=== PATIENT | male | born 1970 | race Caucasian/White ===

== ENCOUNTER 2016-05-20 06:19 | Emergency (ER) | payer BC, OTHER ==
[~2016-05-20] VITALS: Ht 185.4 cm; Wt 143.8 kg
[~2016-05-20 06:19] MED LIST: NO KNOWN MEDICATIONS
[2016-05-20 06:21] VITALS: Ht 185.4 cm; Wt 143.8 kg
--- NOTE | 2016-05-20 06:39 | NUR ---
PROVIDER DR. ARRIAGA IN ROOM WITH PT.
--- NOTE | 2016-05-20 07:03 | ERPDOC ---
Departure Disposition Decision Date: May 20, 2016 Disposition Decision Time: 07:41 Disposition: 01 DISCHARGED HOME, SELF-CARE Impression Impression Impression: Primary Impression: Acute sinusitis Sinusitis location: unspecified location Recurrence: not specified as recurrent Qualified Codes: J01.90 - Acute sinusitis, unspecified Severity: Moderate Condition: Improved Seen By: Physician only Referrals: BC CHAVEZ II, MD (Family) 2 Days Patient Instructions: Sinusitis (ED) Problems/Meds/Labs Reviewed?: Yes Medications reviewed and manag: Yes Follow up care ordered?: Yes Mental Status: Alert, Oriented Scripts Amoxicillin/Potassium Clav (Augmentin 875-125 Tablet) 1 Each Tablet 1 TAB PO BID for 10 Days, #20 TAB 0 Refills TAKE WITH MEALS Prov: LENI ARRIAGA DO 05/20/16 Hydrocodone/Acetaminophen (Deposit 5-325 Tablet) 5-325 Tablet 1 TAB PO Q4HR Y for pain for 2 Days, #12 TAB 0 Refills Prov: LENI ARRIAGA DO 05/20/16 HPI - General Medical General Chief Complaint: Headache Stated Complaint: HEADACHE AND L EYE PAIN Time Seen by Provider: 06:22 Source: patient Exam Limitations: no limitations HPI - General Medical Initial Comments 46-year-old male presents to the emergency department with a chief complaint of a typical headache and sinus pressure and congestion. Patient noted onset of symptoms 3 days ago. Patient is expressing nasal congestion in the left manner with thick drainage. Patient is experiencing frontal and maxillary sinus pressure as well. Patient states his headache is a gradual progression in nature. It is moderate is dull. Patient denies any other complaints or associated symptoms. Patient was at home when the symptoms began. Symptoms have persisted in nature since onset. He has tried Sudafed and over-the- counter medications with some relief of symptoms. Occurred At: home Onset: Gradual Allergies: Coded Allergies: bupropion (Unverified Adverse Reaction, Unknown, NAUSEA, 05/20/16) escitalopram (Unverified Adverse Reaction, Unknown, CROSSED EYES, 05/20/16) Past History Past Medical History Pt denies signifigant PMH Surgical History Denies Surgeries General: other Family History Family PMH: FOUND: [place], diabetes Social History Smoking Status: Former smoker Substance Use Type: does not use Alcohol Intake: none Review of Systems Constitutional Constitutional: DENIES: chills, fever Eyes General: DENIES: erythema, exudate Lids/Accessories: DENIES: erythema, swelling Vision: DENIES: acuity, blurring ENMT Ears: DENIES: drainage, pain Hearing: DENIES: hearing loss Balance: DENIES: ataxia, falling to one side Sinuses: congestion, pain Nose: DENIES: nosebleeds, pain Mouth/Throat: DENIES: painful swallowing, sore throat Teeth: DENIES: pain Jaw: DENIES: pain Cardiovascular Cardiac: DENIES: chest pain, dyspnea on exertion Rhythm/Rate: DENIES: irregular beat, palpitations Vascular: DENIES: pedal edema, unilateral swelling Pulmonary Respiratory: DENIES: cough, dyspnea, pleuritic chest pain, sputum GI Upper Abdomen: DENIES: nausea, pain, vomiting Lower Abdomen: DENIES: diarrhea, pain General: DENIES: dysuria, frequency Musculoskeletal General: DENIES: joint pain, pain, tenderness Integumentary Skin: DENIES: itching, rash Neurological General: headache, DENIES: numbness, weakness Psychiatric Psychiatric: DENIES: emotional instability, suicidal ideation/attempt Endocrine Endocrine: DENIES: polydipsia, polyphagia Hematologic/Lymphatic Hematologic/Lymphatic: DENIES: frequent nosebleeds, lymphadenopathy Allergic/Immunological Allergic/Immunoligical: DENIES: allergic reactions, hives Physical Exam General General Nourishment: well nourished, well developed, appears stated age, no acute distress, adult General Body Habitus: well groomed Vitals and Pain First Documented Vital Signs Date Time Temp Pulse Resp B/P Pulse Ox O2 Delivery O2 Flow Rate FiO2 05/20/16 06:21 97.8 63 14 119/69 98 Room Air Weight: Kilograms: 143.800 Height (feet): 6 Height (inches): 1.00 Triage Pain Scale: RN VS reviewed by Provider: Yes Normal Exams: Head: Normocephalic w/o trauma Eyes: Pupils are PERRLA w/ EOMI, No scleral icterus, irritation, or foreign bodies noted ENMT: No facial trauma, nasal exudates, pharyngeal erythema, or exudates are noted Dental: No fractured, loose, or missing teeth noted Neck: Full range of motion, without adenopathy, JVD, bruits or thyromegaly Chest/Resp: Clear all palmer, with good airflow, and symmetry bilaterally CV: Regular rate and rhythm, without murmur or gallop, Pulses 2+ all extremities, capillary refill, <2 seconds all ext., no pedal edema noted Abdomen: Bowel sounds positive, soft, non-tender, non-distended, no hepatosplenomegaly, masses or bruits noted Lymphatic: No lymphadenopathy, or lymphedema noted Musculoskeletal: No tenderness, or deformity noted, good range of motion, all extremities Integumentary: No rashes, hives, or bruising noted, hair and nails, without abnormality Neurologic: Patient is alert, and oriented, cranial nerves, motor/sensory/ cerebellar, exams w/o gross deficits, to observation Psychiatric: Patient exhibits, appropriate attention, emotion and affect ENMT (brief) Comments + PND. + Tender to percussion over the maxillary and frontal sinuses. Neurologic (brief) Comments Alert and oriented x 4. CN 2-12 intact. Normal strength. Normal coordination. Normal speech. Normal sensation. Normal motor. Reflexes 2/4 in all extremities. Gait normal. Absent Babinski bilaterally. No focal neurologic deficit. Differential Diagnoses Considering: Other (migraine headache/acute sinusitis/viral syndrome/tension headache) Progress Results/Orders Orders Procedure Category Date Status Time Ct Head W/O Contrast CT 05/20/16 Taken 06:43 Progress Progress Imaging is discussed in detail with the patient and questions are answered. Patient declines offered analgesic pain medication in the emergency Department. Patient is provided with prescriptions for Augmentin and Deposit. He is instructed to purchase Flonase [id number] and use as directed. He is to follow up as instructed. He is to return to the emergency department if his condition worsens or changes in any manner. Work note is provided at the patient's request. Patient is in agreement with the current plan of management. He is discharged home in improved condition. CT CT : CT: Head no contrast Interpretation: Normal (mild/moderate mucoperiosteal thickening of the paranasal sinuses. Otherwise no acute processes.), Reviewed Written Report LENI ARRIAGA DO May 20, 2016 07:03
--- NOTE | 2016-05-20 07:15 | NUR ---
CT PT TO CT.
--- NOTE | 2016-05-20 07:22 | NUR ---
CT PT RETURNED FROM CT.
[2016-05-20] MEDS ORDERED: HYDR-4246 PO (07:43)
[2016-05-20] MEDS ORDERED: AMOX-351 PO (07:43)
[2016-05-20 07:55] VITALS: BP 118/64; PULSE 68; RESP 14; TEMP 97.4; O2SAT 99
--- NOTE | 2016-05-20 08:30 | DI ---
Indication: ITS.REASON: Headache PROCEDURE: CT HEAD W/O CONTRAST: Encounter: Initial Comparison: None Technique: Axial CT images through the head were performed without contrast. Iterative Reconstruction dose reducing technique was utilized. FINDINGS: The ventricles are of normal size, shape, and configuration for the patient's age. There is no evidence of acute intracranial hemorrhage, midline displacement, or mass effect. The CT attenuation of the brain parenchyma is normal within the cerebellum, brain stem, and cerebral hemispheres. The tympanic cavities and mastoid air cells are free of appreciable disease. There are no definite fractures of the skull base, calvarium, or visualized portion of the midface. Mild ethmoid sinus disease without acute air-fluid level. IMPRESSION: No CT evidence of acute intracranial abnormality. Mild sinus disease. There is a preliminary report by [employer] radiologic. .
== END 2016-05-20 07:55 | disposition home or self-care (01) ==
LOC: ED 06:19
DX: J01.90 Acute sinusitis, unspecified (principal); Z87.891 Personal history of nicotine dependence